=== PATIENT | female | born 2000 | race Caucasian/White ===

== ENCOUNTER 2022-04-07 00:06 | Emergency (ER) | payer OTHER ==
[~2022-04-07] VITALS: Ht 162.6 cm; Wt 68.0 kg
[2022-04-07 00:16] VITALS: BP 134/88
[2022-04-07] MEDS ORDERED: PREDNISONE10 MG (00:34)
[2022-04-07] MEDS ORDERED: XYZAL5 MG PO (00:35)
[2022-04-07] MEDS ORDERED: AMOXIL500 M1 (00:35)
== END 2022-04-07 02:44 | disposition home or self-care (01) ==
LOC: ED 00:06
DX: J30.2 Other seasonal allergic rhinitis (principal); J32.9 Chronic sinusitis, unspecified; Z28.311 Partially vaccinated for COVID-19
CPT/HCPCS: J1885; J2360

== ENCOUNTER → 2023-08-15 | Outpatient (CLI) | payer BC ==
[~2023-08-15] MED LIST: AMOXIL500 M1; PREDNISONE10 MG; XYZAL5 MG PO
[2023-08-15 10:19] LABS: BASO # 0.05 K/mm3 (0.02-0.10); EOS % 3.7 % (1.0-5.0); HEMATOCRIT 41.6 % (37.0-47.0); HEMOGLOBIN 13.8 g/dL (12.5-16.0); LYMPH# 1.78 K/mm3 (1.50-4.00); MEAN CELL VOLUME 89 fl (78-100); MEAN CORPUSCULAR HEMOGLOBIN 30 pg (27-31); MEAN CORPUSCULAR HGB CONC 33 g/dL (33-37); MEAN PLATELET VOLUME 9.8 fl (7.4-10.4); MONO # 0.21 K/mm3 (0.20-0.80); NEU # 3.16 K/mm3 (1.40-6.50); PLATELET COUNT 211 K/mm3 (130-400); RED BLOOD COUNT 4.67 M/mm3 (4.10-5.30); RED CELL DISTRIBUTION WIDTH 12.5 % (11.5-14.5); WHITE BLOOD COUNT 5.4 K/mm3 (4.8-10.8)
[2023-08-15 10:28] LABS: ALBUMIN 4.5 g/dL (3.5-5.0)
[2023-08-15 10:29] LABS: CALCIUM 10.3 mg/dL (8.3-10.5)
[2023-08-15 10:30] LABS: TOTAL PROTEIN 7.2 g/dL (6.4-8.3)
[2023-08-15 10:32] LABS: TOTAL BILIRUBIN 0.4 mg/dL (0.2-1.2)
== END ==
LOC: LAB 09:46
PROVIDERS: Nurse Practitioner
DX: Z00.00 Encounter for general adult medical examination without abnormal findings (principal); F90.9 Attention-deficit hyperactivity disorder, unspecified type; R53.83 Other fatigue